=== PATIENT | male | born 1935 | race Caucasian/White ===

== ENCOUNTER 2016-07-11 17:08 | Inpatient (IN) | payer OTHER, MEDICAID ==
--- NOTE | 2016-07-11 17:21 | EDPHY ---
H & P Time Seen by Provider: 07/11/16 17:10 HPI/ROS: Chief complaint. Altered mental status HPI. 81-year-old male here by EMS with decreased seeing mental status over the past 2 days. Now arousable to verbal stimuli. No fever. He did slump down out of his wheelchair today but did sustain obvious injury. His blood sugar was normal per EMS. Unknown whether he has been sick. He does take Tegretol and unclear whether he has been taking too many of these meds. Patient is nonverbal to me. The below review of systems is obtained through EMS and the [facility] ROS Constitutional. no fever/chills, no weakness Eyes. no problems with vision ENT. no sore throat, no nasal drainage Cardiovascular. no chest pain Respiratory. no shortness of breath, no cough Abdominal. no abdominal pain, no nausea/vomiting, no diarrhea . no problems urinating MS. no calf pain/swelling, no neck/back pain, no joint pain Skin. no rash Lymph. no swollen glands Neuro. Decreased level of alertness. Unable to walk or speak Past Medical/Surgical History: Past medical history significant for TIA, dementia, hypertension, depression, sleep apnea, coronary artery disease, GERD, dyslipidemia Social History: Single, nonsmoker, no alcohol Smoking Status: Former smoker Physical Exam: General Appearance: Arousable well-developed male nonverbal vital signs show temp 37.1degrees, heart rate 104, O2 saturation 90% Eyes: Pupils equal and round no pallor or injection. ENT, no oral pharyngeal or dental trauma. No hemotympanum or Leigh sign. No evidence of trauma to the head Respiratory: There are no retractions, lungs are clear to auscultation. Cardiovascular: Regular rate and rhythm. Gastrointestinal: Abdomen is soft and nontender, no masses, bowel sounds normal. Neurological: Arousable to sternal rub. Patient moves all 4 extremities Skin: Warm and dry, no rashes. Musculoskeletal: Unable to assess tenderness of his neck Extremities symmetrical, full range of motion. Psychiatric: Arousable but nonverbal Constitutional: Initial Vital Signs Temperature (C) 37.1 C 07/11/16 17:08 Heart Rate 104 H 07/11/16 17:08 Respiratory Rate 16 07/11/16 17:08 Blood Pressure 143/91 H 07/11/16 17:08 O2 Sat (%) 90 L 07/11/16 17:08 O2 Delivery Mode Nasal Cannula O2 (L/minute) 2 Allergies/Adverse Reactions: No Known Allergies Allergy (Verified 07/11/16 17:18) Home Medications: Medication Instructions Recorded Cozaar 07/11/16 Lipitor 07/11/16 Miralax 17 gm (*) 07/11/16 SENEXON-S TABLET 07/11/16 Tegretol 07/11/16 Vitamin D3 07/11/16 Medical Decision Making - Diagnostics EKG Interpretation: EKG interpreted by me shows normal sinus rhythm with normal interval. There is left axis deviation and probable old inferior HI. QRS is otherwise normal there is no significant ST elevation or depression. No arrhythmia. The rate is 98 Imaging Results: Imaging Impressions Chest X-Ray 07/11/16 17:34 Impression: 1. Small right pleural effusion, with probable associated basilar atelectasis. 2. Acute/subacute nondisplaced lateral right 7th and 8th rib fractures. Findings discussed with Laurent Wong M.D., on July 11, [address] 07/11/16 17:34 Impression: 1. No acute intracranial findings. 2. Diffuse cerebral atrophy with periventricular and subcortical low attenuation consistent with chronic microvascular ischemic gliosis. Cervical Spine CT 07/11/16 17:36 Impression: No acute posttraumatic abnormality identified. If there is persistent pain or neurologic deficit, consider MRI and/or flexion and extension views if clinically indicated. Findings discussed with Dr. Laurent Wong, on July 11, [address] head and C-spine show no evidence of intracranial abnormality. Chest x-ray in reviewed by me and discussed with Dr. Schmitz show fractures nondisplaced right 7th and 8th ribs Procedures: Sepsis workup. IV normal saline, monitor ED Course/Re-evaluation: Urinalysis shows significant urinary tract infection. No evidence for elevated lactate. He is given IV Rocephin Re-evaluation 7:30 p.m. patient is somewhat more responsive in that he opens his eyes with verbal stimuli I consulted and discussed case with Dr. Ivey, hospitalist, who agrees to the admission Differential Diagnosis: I considered infectious and sepsis etiology, trauma, metabolic etiologies. Patient does have trauma with rib fractures to right 7th and 8th ribs of unclear acuteness. No evidence for intracranial bleeding. His Tegretol level is slightly elevated but I do not think this will cause altered mental status. It appears to be infectious as he has significant urinary tract infection - Data Points Laboratory Results: Laboratory Results 07/11/16 17:15 07/11/16 17:15 07/11/16 07/11/16 07/11/16 18:30 17:58 17:34 WBC RBC Hgb Hct MCV MCH MCHC RDW Plt Count MPV Neut % (Auto) Lymph % (Auto) [place] % (Auto) Eos % (Auto) Baso % (Auto) Nucleat RBC Rel Count Absolute Neuts (auto) Absolute Lymphs (auto) Absolute Monos (auto) Absolute Eos (auto) Absolute Basos (auto) Absolute Nucleated RBC Immature Gran % Immature Gran # PT 15.2 SEC H SEC (12.0-15.0) INR 1.20 H (0.83-1.16) APTT 32.0 SEC SEC (23.0-38.0) VBG Lactic Acid 1.9 mmol/L mmol/L (0.7-2.1) Sodium Potassium Chloride Carbon Dioxide Anion Gap BUN Creatinine Estimated GFR Glucose Calcium Total Bilirubin Troponin I Urine Color YELLOW Urine Appearance MODERATELY TURBID Urine pH 7.0 (5.0-7.5) Ur Specific [place] 1.025 (1.002-1.030) Urine Protein 2+ H (NEGATIVE) Urine Ketones NEGATIVE (NEGATIVE) Urine Blood 3+ H (NEGATIVE) Urine Nitrate NEGATIVE (NEGATIVE) Urine Bilirubin NEGATIVE (NEGATIVE) Urine Urobilinogen 2.0 EU H EU (0.2-1.0) Ur Leukocyte Esterase 2+ H (NEGATIVE) Urine RBC 50-182 /hpf H /hpf (0-3) Urine WBC 50-182 /hpf H /hpf (0-3) Ur Epithelial Cells 1+ /lpf /lpf (NONE-1+) Urine Bacteria 1+ /hpf H /hpf (NONE SEEN) Urine Mucus TRACE /lpf /lpf (NONE-1+) Urine Yeast PRESENT /hpf /hpf (NONE SEEN) Urine Sperm PRESENT /hpf /hpf (NONE SEEN) Urine Glucose NEGATIVE (NEGATIVE) Carbamazepine 07/11/16 07/11/16 17:15 17:15 WBC 16.36 10^3/uL H 10^3/uL (3.80-9.50) RBC 4.89 10^6/uL 10^6/uL (4.40-6.38) Hgb 15.3 g/dL g/dL (13.7-17.5) Hct 46.5 % % (40.0-51.0) MCV 95.1 fL fL (81.5-99.8) MCH 31.3 pg pg (27.9-34.1) MCHC 32.9 g/dL g/dL (32.4-36.7) RDW 12.7 % % (11.5-15.2) Plt Count 151 10^3/uL 10^3/uL (150-400) MPV 11.6 fL fL (8.7-11.7) Neut % (Auto) 86.8 % H % (39.3-74.2) Lymph % (Auto) 5.0 % L % (15.0-45.0) [place] % (Auto) 7.3 % % (4.5-13.0) Eos % (Auto) 0.0 % L % (0.6-7.6) Baso % (Auto) 0.2 % L % (0.3-1.7) Nucleat RBC Rel Count 0.0 % % (0.0-0.2) Absolute Neuts (auto) 14.19 10^3/uL H 10^3/uL (1.70-6.50) Absolute Lymphs (auto) 0.82 10^3/uL L 10^3/uL (1.00-3.00) Absolute Monos (auto) 1.20 10^3/uL H 10^3/uL (0.30-0.80) Absolute Eos (auto) 0.00 10^3/uL L 10^3/uL (0.03-0.40) Absolute Basos (auto) 0.03 10^3/uL 10^3/uL (0.02-0.10) Absolute Nucleated RBC 0.00 10^3/uL 10^3/uL (0-0.01) Immature Gran % 0.7 % % (0.0-1.1) Immature Gran # 0.12 10^3/uL H 10^3/uL (0.00-0.10) PT INR APTT VBG Lactic Acid Sodium 141 mEq/L mEq/L (134-144) Potassium 4.5 mEq/L mEq/L (3.5-5.2) Chloride 99 mEq/L mEq/L (97-110) Carbon Dioxide 28 mEq/l mEq/l (22-31) Anion Gap 14 mEq/L mEq/L (8-16) BUN 35 mg/dL H mg/dL (7-23) Creatinine 0.9 mg/dL mg/dL (0.7-1.3) Estimated GFR > 60 Glucose 139 mg/dL H mg/dL (70-100) Calcium 9.5 mg/dL mg/dL (8.5-10.4) Total Bilirubin 0.9 mg/dL mg/dL (0.1-1.4) Troponin I 0.016 ng/mL ng/mL (0-0.034) Urine Color Urine Appearance Urine pH Ur Specific [place] Urine Protein Urine Ketones Urine Blood Urine Nitrate Urine Bilirubin Urine Urobilinogen Ur Leukocyte Esterase Urine RBC Urine WBC Ur Epithelial Cells Urine Bacteria Urine Mucus Urine Yeast Urine Sperm Urine Glucose Carbamazepine 13.8 ug/mL H ug/mL (4.0-12.0) Medications Given: Discontinued Medications Sodium Chloride (Ns) 1,000 mls @ 0 mls/hr IV ONCE ONE PRN Reason: Wide Open Stop: 07/11/16 17:35 Last Admin: 07/11/16 18:00 Dose: 1,000 mls Departure - Departure Disposition: [facility] Acute Clinical Impression: Altered mental status Qualifiers: Altered mental status type: unspecified Qualified Code(s): R41.82 - Altered mental status, unspecified Rib fractures Qualifiers: Encounter type: initial encounter Rib fracture type: multiple ribs Urinary tract infection Qualifiers: Urinary tract infection type: site unspecified Hematuria presence: with hematuria Qualified Code(s): N39.0 - Urinary tract infection, site not specified ; R31.9 - Hematuria, unspecified Condition: Fair Referrals: MD MOISES [Other] - As per Instructions
[2016-07-11 17:32] LABS: % IMMATURE GRANULYOCYTES 0.7 % (0.0-1.1); ABSOLUTE IMMATURE GRANULOCYTES 0.12 10^3/uL (0.00-0.10); ADD DIFF? NO; ADD MORPH? NO; ADD SCAN? NO; ATYPICAL LYMPHOCYTE FLAG 0 (0-99); FRAGMENT RBC FLAG 0 (0-99); HEMATOCRIT 46.5 % (40.0-51.0); HEMOGLOBIN 15.3 g/dL (13.7-17.5); LEFT SHIFT FLG 40 (0-99); LIPEMIA HEMOLYSIS FLAG 80 (0-99); MEAN CELL HEMOGLOBIN 31.3 pg (27.9-34.1); MEAN CELL HEMOGLOBIN CONCENTR. 32.9 g/dL (32.4-36.7); MEAN CELL VOLUME 95.1 fL (81.5-99.8); MEAN PLATELET VOLUME 11.6 fL (8.7-11.7); PLATELET CLUMPS FLAG 0 (0-99); PLATELET COUNT 151 10^3/uL (150-400); RED BLOOD CELL COUNT 4.89 10^6/uL (4.40-6.38); RED CELL DISTRIBUTION WIDTH 12.7 % (11.5-15.2)
[2016-07-11] MEDS ORDERED: NS 1,000 ML IV ONE (17:34)
--- NOTE | 2016-07-11 17:38 | CPEKG ---
Heart Rate: 98 RR Interval: 612 P-R Interval: 192 QRSD Interval: 86 QT Interval: 316 QTC Interval: 404 P Kennard: -5 QRS Kennard: -21 T Wave Kennard: 43 EKG Severity - ABNORMAL ECG - EKG Impression: SINUS RHYTHM EKG Impression: INFERIOR INFARCT, AGE INDETERMINATE Electronically Signed By: Laurent Wong 11-Jul-2016 21:20:15
[2016-07-11 17:48] LABS: ANION GAP 14 mEq/L (8-16); CALCIUM 9.5 mg/dL (8.5-10.4); CARBON DIOXIDE 28 mEq/l (22-31); CHLORIDE 99 mEq/L (97-110); CREATININE 0.9 mg/dL (0.7-1.3); GLOMERULAR FILTRATION RATE > 60; GLUCOSE 139 mg/dL (70-100); POTASSIUM 4.5 mEq/L (3.5-5.2); SODIUM 141 mEq/L (134-144); TEGRETOL (CARBAMAZEPINE) 13.8 ug/mL (4.0-12.0)
[2016-07-11 18:01] LABS: INR 1.2 (0.83-1.16); PROTIME(PATIENT) 15.2 SEC (12.0-15.0)
[2016-07-11 18:19] LABS: BILIRUBIN,TOTAL 0.9 mg/dL (0.1-1.4)
[2016-07-11 18:32] LABS: TROPONIN I 0.016 ng/mL (0-0.034)
[2016-07-11 18:49] LABS: COLOR YELLOW; LEUKOCYTE ESTERASE,URINE 2+ (NEGATIVE); NITRITE,URINE NEGATIVE (NEGATIVE)
[2016-07-11 18:51] LABS: BACTERIA 1+ /hpf (NONE SEEN); MUCUS TRACE /lpf (NONE-1+); RBC,URINE 50-182 /hpf (0-3); WBC,URINE 50-182 /hpf (0-3); YEAST PRESENT /hpf (NONE SEEN)
--- NOTE | 2016-07-11 20:57 | GHP ---
[f rep st] HISTORY AND PHYSICAL DATE OF ADMISSION: 07/11/2016 CHIEF COMPLAINT: Altered mental status. HISTORY OF PRESENT ILLNESS: This is an 81-year-old male with history of dementia who is brought to the emergency department from a [facility] by EMS after he was noted to have decreased mental status over the past 2 days. During the time of my exam, the patient is nonverbal. The his tory was obtained via the ER report and from review of hospital records. The patient has not reportedly had a fever. He was noted to slump down in his wheelchair today, but did not sustain an obvious injury. PAST MEDICAL HISTORY: 1. Dementia with visual hallucinations. 2. Coronary artery disease. 3. History of pulmonary embolism. 4. Hypertension. 5. History of TIA and CVA. 6. Hearing loss. 7. Gastroesophageal reflux disease. 8. Osteoporosis. 9. Depression. 10. Dyslipidemia. 11. Hospitalization in June of 2015 for decline and gait instability. HOME MEDICATIONS: Reviewed. Refer to [facility] for details. ALLERGIES: No known drug allergies. SOCIAL HISTORY: Unobtainable. FAMILY HISTORY: Unobtainable. REVIEW OF SYSTEMS: Comprehensive 10-point review of systems was attempted, however, was unobtainabl e due to the patient's inability to respond to questions. PHYSICAL EXAM: VITAL SIGNS: Blood pressure 135/80, pulse 75, respiratory rate 20, O2 saturation 96 % on 2 liters. Temperature afebrile. GENERAL: No acute distress, but does seem to be ill-appearin g. HEAD: Normocephalic, atraumatic. Eyes: PERRLA. Sclerae anicteric. MOUTH: Dry oral mucosa. NECK: Supple. No lymphadenopathy. CARDIOVASCULAR: S1-S2, no JVD. No lower extremity edema. PU LMONARY: Lungs are clear. No wheezes, rales or rhonchi. ABDOMEN: Soft, nontender, nondistended. No guarding or rebound tenderness. Normoactive bowel sounds. EXTREMITIES: No clubbing or cyanosi s. NEURO: Cranial nerves 2-12 appear to be grossly intact. He is moving all extremities. He is n ot following commands making it impossible to conduct a thorough neurologic exam. SKIN: Clear. Th ere does not appear to be any rashes or decubitus. DIAGNOSTICS: WBC 6.36, hemoglobin 15.3, hematocrit 46.5, platelets 151. INR 1.2. Venous lactic ac id 1.9. Sodium 141, potassium 4.5, chloride 99, BUN 35, creatinine 0.9, glucose 139. Troponin was 0.016. UA: 50-182 WBCs, 2+ leukocyte esterase, 3+ blood. Carbamazepine level 13.8. Cervical spine CT: No acute posttraumatic abnormalities chief. Head CT: No acute intracranial fin dings. Diffuse cerebral atrophy. Refer to report for full details. Chest x-ray, which I visualized and personally interpreted, shows a small right pleural effusion and acute/subacute nondisplaced lateral right 7th and 8th rib fractures. EKG, which I also visualized and personally interpreted: Sinus rhythm, rate 98 beats per minute, no acute ischemic changes. There are Q-waves in 3 and aVF. ASSESSMENT AND PLAN: This is an 81-year-old male brought in from the group home due to: 1. Acute encephalopathy. 2. Urinary tract infection. 3. Suspected dehydration with prerenal azotemia. 4. History of dementia that appears to be advanced. 5. Mildly elevated Tegretol level. 6. Right 7th and 8th rib fractures. PLAN: 1. Admit to medical/surgical floor. 2. Continue ceftriaxone that was started in the emergency department. 3. IV fluids. 4. Repeat metabolic panel and CBC in the morning. 5. Follow up cultures. 6. We will hold Tegretol for now, but plan on restarting in the next day or so. 7. Recommend clarifying code status with the patient's medical power of prosecuting attorney. 8. The patient is at high risk for VTE and will be started on low molecular weight heparin for DVT prophylaxis. /[id number]/MODL
[2016-07-11] MEDS ORDERED: SENNOSIDES/DOCUSATE SODIUM TAB PO PRN (21:36)
[2016-07-11] MEDS ORDERED: POLYETHYLENE GLYCOL 3350 17 GM PKT PO PRN (21:36)
[2016-07-11] MEDS ORDERED: ONDANSETRON DISINTEGRATING 4 MG TAB PO PRN (21:36)
[2016-07-11] MEDS: D5W 1/2 NS W/ 20 KCl/L 1,000 ML IV SCH (22:58)
[2016-07-12 05:26] LABS: ABSOLUTE IMMATURE GRANULOCYTES 0.18 10^3/uL (0.00-0.10); ADD DIFF? NO; ADD MORPH? NO; ADD SCAN? NO; ATYPICAL LYMPHOCYTE FLAG 0 (0-99); FRAGMENT RBC FLAG 0 (0-99); HEMOGLOBIN 12.9 g/dL (13.7-17.5); LEFT SHIFT FLG 60 (0-99); LIPEMIA HEMOLYSIS FLAG 80 (0-99); MEAN CELL HEMOGLOBIN 31.8 pg (27.9-34.1); MEAN CELL HEMOGLOBIN CONCENTR. 33.1 g/dL (32.4-36.7); MEAN CELL VOLUME 96.1 fL (81.5-99.8); MEAN PLATELET VOLUME 11.7 fL (8.7-11.7); PLATELET CLUMPS FLAG 30 (0-99); PLATELET COUNT 115 10^3/uL (150-400); RED BLOOD CELL COUNT 4.06 10^6/uL (4.40-6.38); RED CELL DISTRIBUTION WIDTH 12.7 % (11.5-15.2)
[2016-07-12 05:38] LABS: ALANINE AMINOTRANSFERASE 21 IU/L (21-72); ALBUMIN 3.3 g/dL (3.5-5.0); ALKALINE PHOSPHATASE 78 IU/L (38-126); ANION GAP 12 mEq/L (8-16); ASPARTATE AMINOTRANSFERASE 15 IU/L (17-59); BILIRUBIN,TOTAL 0.8 mg/dL (0.1-1.4); CALCIUM 8.7 mg/dL (8.5-10.4); CARBON DIOXIDE 26 mEq/l (22-31); CHLORIDE 105 mEq/L (97-110); CREATININE 0.8 mg/dL (0.7-1.3); GLOMERULAR FILTRATION RATE > 60; GLUCOSE 122 mg/dL (70-100); POTASSIUM 4.5 mEq/L (3.5-5.2); SODIUM 143 mEq/L (134-144); TOTAL PROTEIN 5.9 g/dL (6.3-8.2)
[2016-07-12] MEDS: D5W 1/2 NS W/ 20 KCl/L 1,000 ML IV SCH (07:14)
--- NOTE | 2016-07-12 10:05 | HOSPPROG ---
Hospitalist Progress Note Assessment/Plan: Patient is an 81 y/o male with hx of dementia who was brought to the ER for decreased mental status. Today is my first encounter with the patient/ chart reviewed.Today is my first encounter with the patient/ chart reviewed. #. acute encephalopathy multifactorial/UTI + underlying dementia daughter to come and see him today and will verify this is his baseline #. UTI Ceftriaxone (07/11) awaiting urine cx #. Leukocytosis due to the above # recent unwitnessed fall at SNF able to ambulate this a.m. # emesis retirement called RN and notified her he had 4 bouts none today #. Elevated Tegretol level holding med now follow/recheck labs in a.m. #. Dehydration rehydrated with iv fluids #. r 7 and 8th rib fx (Noted to be old) #. DVT prophylaxis: LMWH Subjective: Chano is smiling/ has no c/o pain. Objective: Vital Signs Temp Pulse Resp BP Pulse Ox 36.9 C 79 14 125/60 H 96 07/12/16 08:00 07/12/16 08:00 07/12/16 08:00 07/12/16 08:00 07/12/16 08:00 Laboratory Results 07/12/16 04:17 07/12/16 04:17 07/11/16 07/12/16 07/13/16 05:59 05:59 05:59 Intake Total 1942 Balance 1942 PT 15.2 SEC (12.0-15.0) H 07/11/16 17:34 INR 1.20 (0.83-1.16) H 07/11/16 17:34 - Physical Exam Constitutional: no apparent distress, chronically ill appearing, No not in pain Eyes: PERRL Ears, Nose, Mouth, Throat: hearing normal Cardiovascular: regular rate and rhythym Respiratory: no respiratory distress, reduced air movement Gastrointestinal: normoactive bowel sounds Skin: warm Neurologic: other (alert and only oriented to his name), No facial droop Psychiatric: interacting appropriately, not anxious, poor memory ICD10 Worksheet Patient Problems: Problems Problem Status Onset Altered mental status Acute Rib fractures Acute Urinary tract infection Acute Acute encephalopathy Acute Fall Acute Right hemiparesis Acute Seizure disorder Acute Vertebral fracture Acute
[2016-07-12] MEDS: CHOLECALCIFEROL VIT D3 1,000 UNITS TAB PO SCH (10:13)
[2016-07-12] MEDS: ATORVASTATIN CALCIUM 40 MG TAB PO SCH (10:13)
[2016-07-12] MEDS: ENOXAPARIN 40 MG/0.4 ML SYR SC SCH (10:13)
[2016-07-12] MEDS: PANTOPRAZOLE SODIUM 40 MG TAB PO SCH (10:13)
[2016-07-12] MEDS: LOSARTAN POTASSIUM 25 MG TAB PO SCH (10:15)
[2016-07-12 20:59] VITALS: RESP 16; O2SAT 93
[2016-07-13 04:48] LABS: % IMMATURE GRANULYOCYTES 0.5 % (0.0-1.1); ABSOLUTE IMMATURE GRANULOCYTES 0.06 10^3/uL (0.00-0.10); ADD DIFF? NO; ADD MORPH? NO; ADD SCAN? NO; ATYPICAL LYMPHOCYTE FLAG 0 (0-99); FRAGMENT RBC FLAG 0 (0-99); HEMATOCRIT 36.6 % (40.0-51.0); HEMOGLOBIN 12.1 g/dL (13.7-17.5); LEFT SHIFT FLG 10 (0-99); LIPEMIA HEMOLYSIS FLAG 80 (0-99); MEAN CELL HEMOGLOBIN 31.2 pg (27.9-34.1); MEAN CELL HEMOGLOBIN CONCENTR. 33.1 g/dL (32.4-36.7); MEAN CELL VOLUME 94.3 fL (81.5-99.8); MEAN PLATELET VOLUME 11.3 fL (8.7-11.7); PLATELET CLUMPS FLAG 0 (0-99); PLATELET COUNT 117 10^3/uL (150-400); RED BLOOD CELL COUNT 3.88 10^6/uL (4.40-6.38); RED CELL DISTRIBUTION WIDTH 12.6 % (11.5-15.2)
[2016-07-13 05:30] LABS: ANION GAP 8 mEq/L (8-16); CALCIUM 8.4 mg/dL (8.5-10.4); CARBON DIOXIDE 25 mEq/l (22-31); CHLORIDE 106 mEq/L (97-110); CREATININE 0.8 mg/dL (0.7-1.3); GLOMERULAR FILTRATION RATE > 60; GLUCOSE 92 mg/dL (70-100); SODIUM 139 mEq/L (134-144); TEGRETOL (CARBAMAZEPINE) 5.6 ug/mL (4.0-12.0)
[2016-07-13 07:27] VITALS: PULSE 63; TEMP 98.4
[2016-07-13] MEDS: ENOXAPARIN 40 MG/0.4 ML SYR SC SCH (07:59)
[2016-07-13] MEDS: LOSARTAN POTASSIUM 25 MG TAB PO SCH (07:59)
[2016-07-13] MEDS: CHOLECALCIFEROL VIT D3 1,000 UNITS TAB PO SCH (07:59)
[2016-07-13] MEDS: ATORVASTATIN CALCIUM 40 MG TAB PO SCH (08:00)
[2016-07-13] MEDS: PANTOPRAZOLE SODIUM 40 MG TAB PO SCH (08:00)
[2016-07-13 08:09] VITALS: BP 120/59
--- NOTE | 2016-07-13 09:44 | HOSPPROG ---
Hospitalist Progress Note Assessment/Plan: Patient is an 81 y/o male with hx of dementia who was brought to the ER for decreased mental status. #. acute encephalopathy multifactorial/UTI + underlying dementia daughter told nursing staff yesterday he was close to his baseline much clearer today, more conversant #. UTI Ceftriaxone (07/11) awaiting urine cx #. + Blood cx most likely a contaminant second blood cx negative #. Leukocytosis improved # recent unwitnessed fall at SNF able to ambulate this a.m. # emesis intermediate called RN and notified her he had 4 bouts none further/ate all of his breakfast #. Elevated Tegretol level resolved/ will resume. #. Dehydration rehydrated with iv fluids #. r 7 and 8th rib fx (Noted to be old) #. DVT prophylaxis: LMWH #. Plan: poss dc later today/ will discuss w CM/ patient significantly better today Subjective: Chano says he has no pain. Objective: Vital Signs Temp Pulse Resp BP Pulse Ox 36.9 C 63 16 120/59 L 93 07/13/16 07:25 07/13/16 07:25 07/13/16 07:25 07/13/16 07:59 07/13/16 07:25 Laboratory Results 07/13/16 04:35 07/13/16 04:35 07/12/16 07/13/16 07/14/16 05:59 05:59 05:59 Intake Total 1942 450 Balance 1943 450 PT 15.2 SEC (12.0-15.0) H 07/11/16 17:34 INR 1.20 (0.83-1.16) H 07/11/16 17:34 - Physical Exam Constitutional: not in pain, chronically ill appearing Eyes: PERRL Ears, Nose, Mouth, Throat: hearing normal Cardiovascular: regular rate and rhythym Respiratory: no respiratory distress Gastrointestinal: normoactive bowel sounds Skin: warm Musculoskeletal: generalized weakness Neurologic: other (alert and oriented to himself and his children's names) Psychiatric: interacting appropriately, poor insight, poor judgement, poor memory ICD10 Worksheet Patient Problems: Problems Problem Status Onset Altered mental status Acute Rib fractures Acute Urinary tract infection Acute Acute encephalopathy Acute Fall Acute Right hemiparesis Acute Seizure disorder Acute Vertebral fracture Acute
--- NOTE | 2016-07-13 11:49 | PDIAF ---
- Diagnosis Diagnosis: acute encephalopathy, uti, dehydration Code Status: Full Code - Medication Management Discharge Medications: Medications to Continue on Transfer Acetaminophen [Tylenol 325mg (*)] 325 mg PO Q6 PRN 07/11/16 [Last Taken Unknown] Acetaminophen [Tylenol ES 500 mg (*)] 1,000 mg PO ONCE PRN 07/11/16 [Last Taken 07/10/16] Atorvastatin Calcium [Lipitor 40 mg (*)] 40 mg PO DAILY 07/11/16 [Last Taken Unknown] Cholecalciferol Vit D3 [Vitamin D3 (*)] 1,000 units PO DAILY 07/11/16 [Last Taken Unknown] Losartan Potassium [Cozaar 25 mg (*)] 25 mg PO DAILY 07/11/16 [Last Taken Unknown] Omeprazole [Prilosec 20 mg] 20 mg PO DAILY 07/11/16 [Last Taken Unknown] Ondansetron Odt [Zofran Odt 4 mg (*)] 4 mg PO Q4 PRN 07/11/16 [Last Taken Unknown] Polyethylene Glycol 3350 [Miralax 17 gm (*)] 17 gm PO DAILY PRN 07/11/16 [Last Taken Unknown] Sennosides/Docusate Sodium [Senna-S Tablet] 1 each PO BID PRN 07/11/16 [Last Taken Unknown] carBAMazepine [TEGretol (*)] 200 mg PO TID 07/11/16 [Last Taken Unknown] Cefuroxime Axetil [Ceftin (*)] 250 mg PO BID #10 tab 07/13/16 [Last Taken Unknown] Discharge Medications: Refer to the Discharge Home Medication list for PRN reason. - Orders Services needed: Physical Therapy, Occupational Therapy Diet Recommendation: no restrictions on diet Diet Texture: Regular Texture Diet Weigh Patient: daily Additional: please have the physcian f/u with urine culture sensitivities/ for now is on ceftin. Suspect Chano was dehydrated when he came in/ had rapid improvement with iv fluids. - Labs/Radiology BMP Date: 07/16/16 CBC Date: 07/16/16 - Follow Up Care Current Providers and Referrals: MD MOISES [Other] - As per Instructions
--- NOTE | 2016-07-13 12:17 | GDS ---
[f rep st] DISCHARGE SUMMARY DISCHARGE DIAGNOSES: 1. Acute encephalopathy. 2. Urinary tract infection. 3. Positive blood culture/contaminant. 4. Leukocytosis. 5. Recent unwitnessed fall at the [facility]. 6. Emesis. 7. Elevated Tegretol level. 8. Dehydration. 9. Right 7th and 8th rib fractures, noted to be old. BRIEF HISTORY: The patient is an 81-year-old male with a history of dementia, who was brought into the emergency department from [facility] by EMS. He was noted to have decreased mental status for the past days. On admission, the nursing staff here spoke to the nursing staff at the [facility]. Apparently, he had a couple bouts of emesis and also had taken a fall. HOSPITAL COURSE PER PROBLEM: 1. Acute encephalopathy. I suspect he is at his baseline. He is very talkative and more conversant today. It was multifactorial. He was dehydrated, had a urinary tract infection, and has underlying dementia. 2. Urinary tract infection, treated with ceftriaxone with much improvement. 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 He improved with ceftriaxone. He will be placed on Ceftin. Asked for the doctor at the [facility] to follow up with the sensitivities, to make sure he is on the right antibiotic. 3. Positive blood culture. This is a contaminant. The second blood culture is negative. 4. Leukocytosis, markedly improved. 5. Recent unwitnessed fall at the [facility]. He is ambulating without difficulty. 6. Emesis. This was noted at the [facility]. He is eating and drinking well. 7. Elevated Tegretol level. I suspect this was because he was dehydrated. This resolved with hydration. Resumed his medication today. 8. Dehydration, much improved. 9. Right 7th and 8th rib fractures, noted to be old. He is able to ambulate. PENDING LABORATORY: Final blood culture and final urine cultures are pending. CONDITION AT DISCHARGE: Stable. Blood pressure is 120/59, heart rate 63, respiratory rate 16, O2 sats on room air 93%. Temp is 36.9 Celsius. MEDICATIONS AT DISCHARGE: Please see the EMR. DISCHARGE INSTRUCTIONS: 1. Recommending a repeat CBC and chemistry panel to make sure his white blood cells continue to trend down. 2. To follow up with the urine sensitivities. Greater than 35 minutes discharging and coordinating care. /[id number]/MODL MTDD
[2016-07-13] MEDS ORDERED: CARBAMAZEPINE 100 MG CHEWABLE TAB PO SCH (16:00)
== END 2016-07-13 13:36 | DRG 689 ==
LOC: EDUNIT# → F3N 21:20
PROVIDERS: ADMIT Family Medicine; ATTEND Family Medicine
DX: N39.0 Urinary tract infection, site not specified (principal); G93.49 Other encephalopathy; E86.0 Dehydration; F03.90 Unspecified dementia, unspecified severity, without behavioral disturbance, psychotic disturbance, mood disturbance, and anxiety; I25.10 Atherosclerotic heart disease of native coronary artery without angina pectoris; I10 Essential (primary) hypertension; M81.0 Age-related osteoporosis without current pathological fracture; E78.5 Hyperlipidemia, unspecified; Z86.711 Personal history of pulmonary embolism; Z86.73 Personal history of transient ischemic attack (TIA), and cerebral infarction without residual deficits; S22.41XD Multiple fractures of ribs, right side, subsequent encounter for fracture with routine healing; W05.0XXA Fall from non-moving wheelchair, initial encounter
CPT/HCPCS: 96365; 97116-GP; 97162-GP; 97165-GO; G8987-GO-CM; G8988-GO-CM; G8989-GO-CM; J0696; J1650